=== PATIENT | male | born 1995 | race Caucasian/White ===

== ENCOUNTER 2017-06-23 22:22 | Emergency (ER) | payer OTHER ==
[~2017-06-23] VITALS: Ht 195.6 cm; Wt 90.0 kg
[2017-06-23 22:26] VITALS: BP 116/66; TEMP 37.2; Ht 195.6 cm; Wt 90.0 kg
[2017-06-23] MEDS ORDERED: CETI10TA10 PO (22:37)
[2017-06-23] MEDS ORDERED: KETOROLAC TROMETHAMINE 15 MG/ML VIAL IV STA (23:05)
[2017-06-23] MEDS ORDERED: SODIUM CHLORIDE 0.9% 1000ML 1,000 ML IV STA (23:05)
[2017-06-23] MEDS ORDERED: ONDANSETRON INJ 2 MG/ML 2 ML VIAL IV STA (23:05)
[2017-06-23] MEDS ORDERED: DiphenhydrAMINE HCL 50 MG/ML VIAL IV STA (23:05)
[2017-06-23 23:49] LABS: BASO % 0.2 %; BASO ABS # 0.01 K/uL (0-0.2); EOS % 0.2 %; EOS ABS # 0.01 K/uL (0-0.5); HEMATOCRIT 42.3 % (42-52); HEMOGLOBIN 14.4 g/dL (14.0-18.0); IG# 0.01 K/uL (0.00-0.02); LYMPH % 7.2 %; LYMPH ABS # 0.36 K/uL (1.2-3.4); MEAN CELL VOLUME 87.8 fL (80-100); MEAN CORPUSCULAR HEMOGLOBIN 29.9 pg (25-34); MEAN PLATELET VOLUME 10.7 fL (7.4-10.4); MONO % 12.1 %; MONO ABS # 0.61 K/uL (0.11-0.59); NEUT % 80.1 %; NEUT ABS # 4.03 K/uL (1.4-6.5); PLATELET COUNT 145 K/uL (130-400); RED CELL DISTRIBUTION WIDTH CV 13.5 % (11.5-14.5); RED CELL DISTRIBUTION WIDTH SD 43.6 fL (36.4-46.3); WHITE BLOOD COUNT 5.03 K/uL (4.8-10.8)
[2017-06-24 00:07] LABS: ALBUMIN 3.9 gm/dl (3.4-5.0); CALCIUM 8.8 mg/dl (8.5-10.1); CREATININE 1.07 mg/dl (0.60-1.40); POTASSIUM 3.8 mmol/L (3.5-5.1)
[2017-06-24 00:10] LABS: TOTAL PROTEIN 7.6 gm/dl (6.4-8.2)
--- NOTE | 2017-06-24 00:24 | EMERGENCY ROOM VISIT NOTE ---
History First contact with patient: 22:30 Chief Complaint: FLU LIKE SX Stated Complaint: SEVERE HEADACHE,FEVER CHILLS History of Present Illness The patient is a 22 year old male who presents to the Emergency Room with complaints of headache and flulike symptoms. The patient reports that yesterday , he woke up with a cough. His symptoms persisted throughout the day today and he was seen at [facility] earlier in the day. He states that he was diagnosed with influenza A. He was prescribed Tamiflu. He states that he took Tamiflu, then Advil and promptly vomited. He has taken Advil twice since then. The patient reports that now, he has a headache and body aches. He is no longer feeling nauseous. He rates his overall discomfort a 7/10. He denies any neck pain/stiffness, abdominal pain, chest pain or shortness of breath. Review of Systems A complete 10 point review of systems was reviewed with the patient with pertinent positives and negatives as per history of present illness. All else were negative. Past Medical/Surgical History Medical Problems: (1) No significant active problems Social History Smoking Status: Never Smoker Alcohol Use: none Housing Status: lives with roommate Occupation Status: [employer] student Current/Historical Medications Scheduled Cetirizine Hcl (Zyrtec), 10 MG PO DAILY Physical Exam Vital Signs Date Time Temp Pulse Resp B/P (MAP) Pulse Ox O2 Delivery O2 Flow Rate FiO2 06/24/17 00:33 101 97 06/23/17 22:26 37.2 121 18 116/66 94 Room Air Physical Exam VITALS: Vitals are noted on the nurse's note and reviewed by myself. Vital signs stable. GENERAL: This is a 22-year-old male, in no acute distress, nontoxic in appearance, well-developed well-nourished. SKIN: The skin was without rashes. EARS: External auditory canals clear, tympanic membranes pearly escalona without erythema or effusion bilaterally. EYES: Pupils equal round and reactive to light and accommodation. NOSE: Patent, turbinates without inflammation or discharge. MOUTH: Mucous membranes moist. Tonsils are not enlarged. Pharynx without erythema or exudate. NECK: Supple without nuchal rigidity. No lymphadenopathy. Full range of motion of the neck. No meningismus. HEART: Regular rate and rhythm without murmurs gallops or rubs. LUNGS: Clear to auscultation bilaterally without wheezes, rales or rhonchi. ABDOMEN: Positive bowel sounds x 4. Soft, nontender to palpation. NEURO: Patient was alert and oriented to person place and time. Medical Decision & Procedures Laboratory Results 06/23/17 23:40 Red Blood Count 4.82, Mean Corpuscular Volume 87.8, Mean Corpuscular Hemoglobin 29.9, Mean Corpuscular Hemoglobin Concent 34.0, Mean Platelet Volume 10.7, Neutrophils (%) (Auto) 80.1, Lymphocytes (%) (Auto) 7.2, Monocytes (%) (Auto) 12.1, Eosinophils (%) (Auto) 0.2, Basophils (%) (Auto) 0.2, Neutrophils # (Auto ) 4.03, Lymphocytes # (Auto) 0.36, Monocytes # (Auto) 0.61, Eosinophils # (Auto ) 0.01, Basophils # (Auto) 0.01 06/23/17 23:40 Test 06/23/17 23:40 White Blood Count 5.03 K/uL (4.8-10.8) Red Blood Count 4.82 M/uL (4.7-6.1) Hemoglobin 14.4 g/dL (14.0-18.0) Hematocrit 42.3 % (42-52) Mean Corpuscular Volume 87.8 fL (80-100) Mean Corpuscular Hemoglobin 29.9 pg (25-34) Mean Corpuscular Hemoglobin Concent 34.0 g/dl (32-36) Platelet Count 145 K/uL (130-400) Mean Platelet Volume 10.7 fL (7.4-10.4) Neutrophils (%) (Auto) 80.1 % Lymphocytes (%) (Auto) 7.2 % Monocytes (%) (Auto) 12.1 % Eosinophils (%) (Auto) 0.2 % Basophils (%) (Auto) 0.2 % Neutrophils # (Auto) 4.03 K/uL (1.4-6.5) Lymphocytes # (Auto) 0.36 K/uL (1.2-3.4) Monocytes # (Auto) 0.61 K/uL (0.11-0.59) Eosinophils # (Auto) 0.01 K/uL (0-0.5) Basophils # (Auto) 0.01 K/uL (0-0.2) RDW Standard Deviation 43.6 fL (36.4-46.3) RDW Coefficient of Variation 13.5 % (11.5-14.5) Immature Granulocyte % (Auto) 0.2 % Immature Granulocyte # (Auto) 0.01 K/uL (0.00-0.02) Anion Gap 6.0 mmol/L (3-11) Est Creatinine Clear Calc Drug Dose 137.7 ml/min Estimated GFR () 114.4 Estimated GFR (Non- 98.7 BUN/Creatinine Ratio 14.7 (10-20) Calcium Level 8.8 mg/dl (8.5-10.1) Total Bilirubin 0.4 mg/dl (0.2-1) Aspartate Amino Transf (AST/SGOT) 26 U/L (15-37) Alanine Aminotransferase (ALT/SGPT) 27 U/L (12-78) Alkaline Phosphatase 62 U/L (45-117) Total Protein 7.6 gm/dl (6.4-8.2) Albumin 3.9 gm/dl (3.4-5.0) Globulin 3.7 gm/dl (2.5-4.0) Albumin/Globulin Ratio 1.0 (0.9-2) Medications Administered Medications (Trade) Dose Ordered Sig/Arnulfo Route Start Time Stop Time Status Last Admin Dose Admin Sodium Chloride 1,000 ml @ 999 mls/hr Q1H1M STAT IV 06/23/17 23:05 06/24/17 00:05 DC 06/23/17 23:39 999 MLS/HR Ketorolac Tromethamine (Toradol Inj) 15 mg NOW STAT IV 06/23/17 23:05 06/23/17 23:07 DC 06/23/17 23:38 15 MG Diphenhydramine HCl (Benadryl Inj) 25 mg NOW STAT IV 06/23/17 23:05 06/23/17 23:07 DC 06/23/17 23:39 25 MG Ondansetron HCl (Zofran Inj) 4 mg NOW STAT IV 06/23/17 23:05 06/23/17 23:07 DC 06/23/17 23:38 4 MG Ondansetron HCl (ZOFRAN ODT 4MG Home Pack) 1 homepack UD ONCE PO 06/24/17 00:30 06/24/17 00:31 AL 06/24/17 00:29 1 HOMEPACK Medical Decision Differential diagnosis includes influenza, meningitis, medication side effect, among others. The patient is a 22-year-old male who presents today complaining of headache. Patient was diagnosed with influenza earlier today. He developed headache and vomiting after taking Tamiflu. Research shows that Tamiflu commonly causes side effects of nausea, vomiting and headache. Benefits/risks of taking Tamiflu were discussed with the patient. He is not immunocompromised and I feel that given the side effects, he may feel better if he stops the Tamiflu. Labs revealed no leukocytosis, anemia or concerning electrolyte abnormalities. Patient was hydrated with IV fluids and headache was treated as above. Patient felt much better after this treatment. He was advised to follow-up with S or return here for worsening symptoms. Based on the patient's presentation and work up, I feel the patient is stable for outpatient treatment. The patient was educated to return to the emergency department for any worsening of their current condition or new/concerning symptoms. He will follow up with S. Medication Reconcilliation Current Medication List: was personally reviewed by ks Blood Pressure Screening Patient's blood pressure: Normal blood pressure Impression Primary Impression: Influenza Departure Information Dispostion Home / Self-Care Condition GOOD Referrals No Doctor, Assigned (PCP) Patient Instructions My [facility] Additional Instructions For pain control, you can use the following [id number] medicines (if >12 yo): - Extra strength (500mg/tab) Tylenol (acetaminophen) 2 tabs every 6 hours as needed. Avoid taking more than 4 grams (4000 mg) of Tylenol per day. This includes any other sources of acetaminophen you may take on a regular basis. - Regular strength (200 mg/tab) Advil (ibuprofen) 3-4 tabs every 6 hours as needed. Do not exceed a dose of 3200 mg per day. Rest and make sure to drink plenty of fluids. You have been prescribed Zofran to be used for any nausea or vomiting. Take as prescribed. Follow up with S this week as needed for recheck. Return here for worsening headache, worsening vomiting, fevers not controlled by Tylenol or ibuprofen, neck pain/stiffness, or any other new/concerning symptoms.
[2017-06-24] MEDS ORDERED: ONDANSETRON HOME PACK 4MG OD TAB PO ONE (00:30)
[2017-06-24 00:33] VITALS: PULSE 101; O2SAT 97
[2017-06-24] MEDS ORDERED: FRCT/ PO (14:28)
== END 2017-06-24 00:30 | disposition home or self-care (01) ==
LOC: C.EDB 22:24
DX: J11.1 Influenza due to unidentified influenza virus with other respiratory manifestations (principal)

== ENCOUNTER 2017-06-24 10:30 | Emergency (ER) | payer OTHER ==
[~2017-06-24] VITALS: Ht 195.6 cm; Wt 90.2 kg
[~2017-06-24 10:30] MED LIST: CETI10TA10 PO
[2017-06-24 11:00] VITALS: TEMP 37.3; Ht 195.6 cm; Wt 90.2 kg
[2017-06-24 11:20] VITALS: O2SAT 97
--- NOTE | 2017-06-24 11:34 | EMERGENCY ROOM VISIT NOTE ---
History Report prepared by Danitza: Florencio Silva Under the Supervision of: Dr. Venancio Johnson M.D. First contact with patient: 11:03 Chief Complaint: FLU LIKE SX Stated Complaint: HEADACHE, FEVER, CHILLS History of Present Illness The patient is a 22 year old white male with no significant medical history who presents to the Emergency Room with complaints of a constant headache that he has been experiencing since last night. The patient describes his head pain as a "sharp" sensation that is localized to the front of his head. The patient went to [employer] on Saturday and was diagnosed with influenza. He was given Tamiflu, which he vomited immediately after taking. The patient came to the ED last night for his headache. His pain has not resolved to this time. His headache is worsened by light at this time. He vomited twice again this morning. Source of History: patient Onset: Last night Position: head Quality: sharp Timing: constant Modifying Factors (Worsening): other (Light) Associated Symptoms: + vomiting Review of Systems See HPI for pertinent positives and negatives. A total of ten systems were reviewed and were otherwise negative. Past Medical & Surgical Medical Problems: (1) No significant active problems Family History Patient reports no known family medical history. Social History Smoking Status: Never Smoker Alcohol Use: none Housing Status: lives with roommate Occupation Status: [employer] student Current/Historical Medications Scheduled Cetirizine Hcl (Zyrtec), 10 MG PO DAILY Allergies Coded Allergies: Metoclopramide (Verified Allergy, Unknown, distonia, 06/23/17) Physical Exam Vital Signs Date Time Temp Pulse Resp B/P (MAP) Pulse Ox O2 Delivery O2 Flow Rate FiO2 06/24/17 14:01 106/52 06/24/17 13:36 87 94 06/24/17 13:31 128/68 06/24/17 13:06 90 99 06/24/17 13:01 102/55 06/24/17 13:00 95 99 Room Air 06/24/17 12:31 91 18 102/54 97 Room Air 06/24/17 12:31 108/55 06/24/17 12:30 90 13 98 Room Air 06/24/17 12:25 100 06/24/17 12:23 102/54 06/24/17 11:20 97 Room Air 06/24/17 11:00 37.3 106 18 134/67 92 Room Air Physical Exam GENERAL: Awake, alert, well-appearing, NAD HENT: Normocephalic, atraumatic. EYES: Normal conjunctiva. Sclera non-icteric. NECK: Supple. No nuchal rigidity. FROM. No signs of meningismus. Able to touch chin to chest without pain. RESPIRATORY: CTAB, no rhonchi, wheezing, crackles CARDIAC: RRR, no MRG ABDOMEN: Soft, NTND, BS+ MSK: No chest wall TTP, no LE edema NEURO: CN 2-12 intact, 5/5 upper and lower extremity strength, no dysmetria, no drift, good finger to nose, no sensory deficits. Finger count grossly normal. PERRL. SKIN: No rash or jaundice noted. Medical Decision & Procedures Medications Administered Medications (Trade) Dose Ordered Sig/Arnulfo Route Start Time Stop Time Status Last Admin Dose Admin Prochlorperazine Edisylate (Compazine Inj) 10 mg NOW STAT IV 06/24/17 11:36 06/24/17 11:38 DC 06/24/17 12:09 10 MG Sodium Chloride 1,000 ml @ 999 mls/hr Q1H1M STAT IV 06/24/17 11:36 06/24/17 12:36 DC 06/24/17 12:07 999 MLS/HR Ketorolac Tromethamine (Toradol Inj) 30 mg NOW STAT IV 06/24/17 11:36 06/24/17 11:38 DC 06/24/17 12:12 30 MG Acetaminophen (Tylenol Tab) 1,000 mg NOW STAT PO 06/24/17 11:36 06/24/17 11:38 DC 06/24/17 12:09 1,000 MG Dexamethasone Sodium Phosphate (Decadron Inj) 10 mg NOW STAT IV 06/24/17 11:36 06/24/17 11:38 DC 06/24/17 12:14 10 MG Diphenhydramine HCl (Benadryl Inj) 50 mg NOW STAT IV 06/24/17 11:36 06/24/17 11:38 DC 06/24/17 12:12 50 MG ED Course 1128: The patient was evaluated in room C11B. A complete history and physical exam was performed. 1423: I reevaluated the patient. Discussed results and discharge instructions: He verbalized understanding and agreement. The patient is ready for discharge. Medical Decision The patient is a 22 year old white male with no significant medical history who presents to the Emergency Room with complaints of a constant headache that he has been experiencing since last night. The patient describes his head pain as a "sharp" sensation that is localized to the front of his head. Differential diagnosis: Etiologies such as migraine headache, meningitis, sinusitis, CO exposure, ICH, SAH, infection, tumor, headache, sinus thrombosis, arterial dissection, as well as others were entertained. Patient was seen and evaluated at the bedside. Patient was recently seen here for some headache and was given some antiemetics. Patient was diagnosed with the flu at [facility] yesterday. Patient has been taking Tamiflu. Question was whether he received a full dose as the patient has been having some issues with tolerating p.o. On exam the patient has no signs of meningismus. Patient does have some mild photophobia. Patient has a nonfocal neurologic exam. I do not believe that he requires a CT of the brain or an LP at this time. Furthermore, do not believe that he requires any blood work. Patient was given IV fluids as well as medications to help resolve his headache. On reassessment the patient again has no signs of meningismus's and O 3 with a GCS of 15 and the patient states that it has a headache has completely resolved. Patient was told to continue [id number] type remedies and to continue taking his Tamiflu as well as antibiotics at home. Patient was told hopefully this would improve with time. Patient was told bland diet and to advance as tolerated. Patient was given strict follow-up, discharge, and return precautions. All questions were answered. Patient was deemed suitable for outpatient follow-up at this time. Patient agreed with the plan of care and was safely discharged home. Medication Reconcilliation Current Medication List: was personally reviewed by me Blood Pressure Screening Patient's blood pressure: Normal blood pressure Impression Primary Impression: Influenza-like symptoms Additional Impressions: Flu Headache Scribe Attestation The scribe's documentation has been prepared under my direction and personally reviewed by me in its entirety. I confirm that the note above accurately reflects all work, treatment, procedures, and medical decision making performed by me. Departure Information Dispostion Home / Self-Care Prescriptions Acetamin/Butalbital/Caffeine (FIORICET) 1 Ea Tab 1 TAB PO BID Y for Pain, #6 TAB Prov: Venancio Johnson M.D. 06/24/17 Referrals No Doctor, Assigned (PCP) [facility] Patient Instructions ED Diet [place], ED Flu, My [facility] Additional Instructions Please return to the emergency department if you have worsening or recurrent symptoms not amenable to at-home treatment. Please call for a follow-up appointment with her primary care physician. Please take your medications as prescribed. If you have other concerns and/or complaints please feel free to also call your primary care physician's office or return the ED for further evaluation, management, and treatment. Consider a bland diet and make sure that you hydrate well with fluids. Please continue to [id number] type treatments as well as the Tamiflu and antinausea medicine as needed. You may take 600 mg Ibuprofen every 6 hours as needed for pain/fever with food. You may take tylenol 1000 mg every 6 hours as needed for pain/fever. You may take motrin and tylenol separately or at the same time. Take your medications as prescribed. You have been examined and treated today on an emergency basis only. This is not a substitute for, or an effort to provide, complete comprehensive medical care. It is impossible to recognize and treat all injuries or illnesses in a single emergency department visit. It is therefore important that you follow up closely with [facility], your PCP, and/or your specialist(s). Call as soon as possible for an appointment. Thank you for your time and consideration. I look forward to speaking with you again soon. Please don't hesitate to call us if you have any questions. Problem Qualifiers Additional Impressions: Headache Headache type: unspecified Headache chronicity pattern: acute headache Intractability: not intractable Qualified Codes: R51 - Headache
[2017-06-24] MEDS ORDERED: ACETAMINOPHEN 500 MG TAB PO STA (11:36)
[2017-06-24] MEDS ORDERED: PROCHLORPERAZINE 5 MG/ML 2 ML VIAL IV STA (11:36)
[2017-06-24] MEDS ORDERED: SODIUM CHLORIDE 0.9% 1000ML 1,000 ML IV STA (11:36)
[2017-06-24] MEDS ORDERED: KETOROLAC TROMETHAMINE 30 MG/ML VIAL IV STA (11:36)
[2017-06-24] MEDS ORDERED: DiphenhydrAMINE HCL 50 MG/ML VIAL IV STA (11:36)
[2017-06-24] MEDS ORDERED: DEXAMETHASONE SOD INJ 4 MG/ML VIAL IV STA (11:36)
[2017-06-24 13:36] VITALS: PULSE 87; O2SAT 94
[2017-06-24 14:01] VITALS: BP 106/52
[2017-06-24] MEDS ORDERED: FRCT/ PO (14:28)
== END 2017-06-24 14:26 | disposition home or self-care (01) ==
LOC: C.EDB 10:32 → C.EDC 14:26
DX: J10.1 Influenza due to other identified influenza virus with other respiratory manifestations (principal); R50.9 Fever, unspecified; R51 Headache